=== PATIENT | male | born 1955 | race Caucasian/White ===

== ENCOUNTER 2018-05-25 07:50 | Day surgery (SDC) | payer BC ==
[2018-05-22 12:32] VITALS: BMI 36.2
[2018-05-25] MEDS ORDERED: PROPOFOL 20 ML ONE ×2 (08:42)
[2018-05-25 12:52] VITALS: TEMP 98.1
[2018-05-25 12:58] VITALS: BP 122/67; PULSE 54
== END 2018-05-25 10:15 | disposition home or self-care (01) ==
LOC: FASU-ENDO 07:50
PROVIDERS: ATTEND Internal Medicine Gastroenterology
PROC: 0D5K8ZZ Destruction of Ascending Colon, Via Natural or Artificial Opening Endoscopic (ICD-10-PCS; principal; 2018-05-25 08:54)
DX: Z86.010 Personal history of colon polyps (principal); K55.20 Angiodysplasia of colon without hemorrhage
CPT/HCPCS: 82962